=== PATIENT | female | born 1955 | race Caucasian/White ===

== ENCOUNTER → 2018-10-08 | Outpatient (CLI) | payer BC ==
[2014-11-15 08:58] VITALS: BP 142/80
[~2018-10-08] MED LIST: ANAS1TAB47 PO; CAPE500T PO; CHOL500016 PO; GABA300C18 PO; HYDR-2680 PO; LEVO150T5 PO
--- NOTE | 2018-10-08 16:33 | KCIC ---
3 view left rib detail series Clinical indications: Left lower anterior rib pain for a few days. History of breast cancer and rectal cancer and melanoma. FINDINGS: There are nondisplaced fractures of the lateral aspect of the left sixth and seventh ribs. No lytic process is seen here. IMPRESSION: Nondisplaced fractures of the lateral left sixth and seventh ribs. Electronically signed by: Reji Lilly MD (10/08/2018 4:28 PM) [id number]
== END | disposition home or self-care (01) ==
LOC: KCIC 15:32
PROVIDERS: ATTEND Family Medicine
DX: S22.42XA Multiple fractures of ribs, left side, initial encounter for closed fracture (principal); Z85.3 Personal history of malignant neoplasm of breast; Z85.048 Personal history of other malignant neoplasm of rectum, rectosigmoid junction, and anus; X58.XXXA Exposure to other specified factors, initial encounter; Y93.89 Activity, other specified; Y92.89 Other specified places as the place of occurrence of the external cause; Y99.8 Other external cause status
CPT/HCPCS: 71100